=== PATIENT | male | born 1945 | race Caucasian/White ===

== ENCOUNTER 2019-06-02 10:17 | Emergency (ER) | payer MEDICARE, OTHER ==
[~2019-06-02] VITALS: Ht 172.7 cm; Wt 83.9 kg
[2019-06-02 10:40] VITALS: BP 213/95
--- NOTE | 2019-06-02 10:40 | NUR ---
ED Nurse Note: pt presents to ED c/o right sided HERNADEZ x1 day. pt states that it feels like a "pressure" that he would rate 2/10. pt describes feeling a "tension" when he bears down (sneezing, coughing). He has not taken any of his meds today because he took an OTC medication for HERNADEZ and did not want it to interact with his regular medications. pt also reports having 2 loose stools today and is feeling more lethargic than normal. per pt, his blood pressure at home has been in the range of 140/80.
[2019-06-02] MEDS ORDERED: LIPITOR10 MG ORAL (10:45)
[2019-06-02] MEDS ORDERED: LOSARTAN POTASS25 M1 PO (10:46)
[2019-06-02] MEDS ORDERED: ATENOLOL50 MG ORAL (10:49)
[2019-06-02] MEDS ORDERED: OMEPRAZOLE20 M2 ORAL (10:50)
[2019-06-02] MEDS ORDERED: HYDROCHLOROTH12.5 MG ORAL (10:50)
--- NOTE | 2019-06-02 10:55 | Emergency Room Report ---
History of Present Illness General Chief Complaint: Headache Source: Patient Present Illness HPI Patient presents with complaints of episode of right-sided headache who reports that last night he had a slight discomfort To the right temporal parietal region of the scalp patient noticed some discomfort when coughing He had taken a pain medicine last night reports that his symptoms had significantly improved This morning he had 2 episodes of diarrhea He reports that this happens whenever he eats [place] food Denies any chest pain or shortness of breath denies any vomiting denies any recent travel denies any visual changes denies any discomfort at this time upon arrival Patient appears to have recently increased His losartan and has stopped hydrochlorothiazide for the past 2 months Patient also reports that at the dental clinic at [facility] they have checked his blood pressure with a manual cuff and it is consistently different than the automated cuff Allergies: Coded Allergies: No Known Allergies (Unverified , 06/02/19) Patient History Past Medical History: see triage record Reviewed Nursing Documentation: PMH: Agreed; PSxH: Agreed Nursing Documentation-PMH Hx Cardiac Problems: No - hyperlipidemia Hx Hypertension: Yes Hx Diabetes: Yes - Pre-Diabetes Hx Gastrointestinal Problems: Yes - cholesystemomy 2011 Review of Systems All Other Systems: negative except mentioned in HPI Physical Exam Vital Signs Date Time Temp Pulse Resp B/P (MAP) Pulse Ox O2 Delivery O2 Flow Rate FiO2 06/02/19 10:25 98.2 74 18 213/95 (134) 92 Room Air Sp02 EP Interpretation: reviewed, normal General Appearance: well appearing, no apparent distress Head: normocephalic, atraumatic Eyes: bilateral eye PERRL, bilateral eye EOMI ENT: hearing grossly normal, normal pharynx, TMs + canals normal, uvula midline Neck: full range of motion, supple, no meningismus, no bony tend Respiratory: lungs clear, normal breath sounds, no rhonchi, no respiratory distress, no retraction, no accessory muscle use Cardiovascular #1: normal peripheral pulses, regular rate, rhythm, no edema, no gallop, no JVD, no murmur Gastrointestinal: normal bowel sounds, non tender, soft, no mass, no organomegaly, non-distended, no guarding, no hernia, no pulsatile mass, no rebound Genitourinary: no CVA tenderness Musculoskeletal: normal inspection Neurologic: oriented x3, responsive, draw frame runner III-XII nml as tested, motor strength/ tone normal, sensory intact Psychiatric: mood/affect normal Skin: no rash Lymphatic: normal inspection, no adenopathy Medical Decision Making Diagnostic Impression: Primary Impression: Headache Additional Impression: Hypertension ER Course Multiple differentials including but not limited to neurological, neurosurgical infectious pathology are all entertained, Other differential such as temporal arteritis Patient also reports receiving the flu shot about 3 weeks ago Patient's white blood cell count shows very minimal increase Kidney function also is mildly increased patient reports that he is aware that and was 1 of the reasons why his physician change his medications patient's blood pressure has improved to 165 systolic during his stay CT imaging shows chronic findings These are discussed with the patient especially given the significant small vessel disease Patient's blood work also discussed I discussed with the patient regarding inpatient care versus outpatient care, given the patient's hypertensive findings nonspecific CT findings patient could benefit from inpatient neurology , MRI Patient however at this time asymptomatic reports that his pain is 0 out of 10 Has repeat benign neurological exam and reports that he will contact his physician on Tuesday otherwise presents back with any concerning findings Labs Test 06/02/19 11:19 06/02/19 11:33 White Blood Count 11.6 K/UL (4.8-10.8) Red Blood Count 5.02 M/UL (4.70-6.10) Hemoglobin 16.4 G/DL (14.2-18.0) Hematocrit 48.1 % (42.0-52.0) Mean Corpuscular Volume 96 FL (80-99) Mean Corpuscular Hemoglobin 32.6 PG (27.0-31.0) Mean Corpuscular Hemoglobin Concent 34.1 G/DL (32.0-36.0) Red Cell Distribution Width 11.5 % (11.6-14.8) Platelet Count 229 K/UL (150-450) Mean Platelet Volume 8.7 FL (6.5-10.1) Neutrophils (%) (Auto) % (45.0-75.0) Lymphocytes (%) (Auto) % (20.0-45.0) Monocytes (%) (Auto) % (1.0-10.0) Eosinophils (%) (Auto) % (0.0-3.0) Basophils (%) (Auto) % (0.0-2.0) Differential Total Cells Counted 100 Neutrophils % (Manual) 88 % (45-75) Lymphocytes % (Manual) 10 % (20-45) Monocytes % (Manual) 0 % (1-10) Eosinophils % (Manual) 0 % (0-3) Basophils % (Manual) 0 % (0-2) Band Neutrophils 2 % (0-8) Platelet Estimate Adequate Platelet Morphology Normal Red Blood Cell Morphology Normal Sodium Level 137 MMOL/L (136-145) Potassium Level 4.1 MMOL/L (3.5-5.1) Chloride Level 100 MMOL/L (98-107) Carbon Dioxide Level 25 MMOL/L (21-32) Anion Gap 12 mmol/L (5-15) Blood Urea Nitrogen 19 mg/dL (7-18) Creatinine 1.4 MG/DL (0.55-1.30) Estimat Glomerular Filtration Rate mL/min (>60) Glucose Level 141 MG/DL (74-106) Calcium Level 9.6 MG/DL (8.5-10.1) Total Bilirubin 0.9 MG/DL (0.2-1.0) Aspartate Amino Transf (AST/SGOT) 27 U/L (15-37) Alanine Aminotransferase (ALT/SGPT) 28 U/L (12-78) Alkaline Phosphatase 66 U/L (46-116) Total Creatine Kinase 164 U/L (26-308) Creatine Kinase MB 2.0 NG/ML (0.0-3.6) Creatine Kinase MB Relative Index 1.2 Troponin I 0.000 ng/mL (0.000-0.056) Total Protein 8.3 G/DL (6.4-8.2) Albumin 4.4 G/DL (3.4-5.0) Globulin 3.9 g/dL Albumin/Globulin Ratio 1.1 (1.0-2.7) Rhythm Strip Diag. Results EP Interpretation: yes Rate: 77 Rhythm: NSR, no PVC's, no ectopy CT/MRI/US Diagnostic Results CT/MRI/US Diagnostic Results : Impression CT headIMPRESSION: 1. No acute intracranial abnormality. 2. Mild chronic small vessel ischemic changes and cerebral volume loss. Last Vital Signs Date Time Temp Pulse Resp B/P (MAP) Pulse Ox O2 Delivery O2 Flow Rate FiO2 06/02/19 10:25 98.2 74 18 213/95 (134) 92 Room Air Status: improved Disposition: HOME, SELF-CARE Condition: Improved Referrals: NON PHYSICIAN (PCP) Additional Instructions: Patient is provided with the discharge instructions notified to follow up with primary doctor in the next 2-3 days otherwise return to the er with any worsening symptoms. Please note that this report is being documented using [employer] technology. This can lead to erroneous entry secondary to incorrect interpretation by the dictating instrument. Sallie Angeles DO Jun 02, 2019 10:54
--- NOTE | 2019-06-02 11:30 | NUR ---
ED Nurse Note: pt brought down to CT
[2019-06-02 11:43] LABS: HEMATOCRIT 48.1 % (42.0-52.0); HEMOGLOBIN 16.4 G/DL (14.2-18.0); MEAN CORPUSCULAR VOLUME 96 FL (80-99); PLATELET COUNT 229 K/UL (150-450); RED BLOOD COUNT 5.02 M/UL (4.70-6.10); RED CELL DISTRIBUTION WIDTH 11.5 % (11.6-14.8); WHITE BLOOD COUNT 11.6 K/UL (4.8-10.8)
[2019-06-02 11:53] LABS: ANION GAP 12 mmol/L (5-15); BLOOD UREA NITROGEN 19 mg/dL (7-18); CALCIUM 9.6 MG/DL (8.5-10.1); CARBON DIOXIDE 25 MMOL/L (21-32); CHLORIDE 100 MMOL/L (98-107); CREATININE 1.4 MG/DL (0.55-1.30); POTASSIUM 4.1 MMOL/L (3.5-5.1); SODIUM 137 MMOL/L (136-145)
[2019-06-02 12:09] LABS: ALANINE AMINOTRANSFERASE 28 U/L (12-78); ALBUMIN 4.4 G/DL (3.4-5.0); ALBUMIN/GLOBULIN RATIO 1.1 (1.0-2.7); ALKALINE PHOSPHATASE 66 U/L (46-116); ASPARTATE AMINO TRANSFERASE 27 U/L (15-37); BILIRUBIN,TOTAL 0.9 MG/DL (0.2-1.0); CREATINE KINASE 164 U/L (26-308)
--- NOTE | 2019-06-02 12:20 | Diagnostic Imaging Report ---
EXAM: CT Head Without Intravenous Contrast CLINICAL HISTORY: PAIN TECHNIQUE: Axial computed tomography images of the head brain without intravenous contrast. CTDI is 55.7 mGy and DLP is 1257.4 mGy-cm. One or more of the following dose reduction techniques were used: automated exposure control, adjustment of the mA and or kV according to patient size, use of iterative reconstruction technique. COMPARISON: None FINDINGS: Brain: No acute infarct or hemorrhage identified. No extra-axial fluid collection. No mass effect or midline shift. Scattered areas of hypoattenuation in the supratentorial white matter likely represent chronic small vessel ischemic changes. Ventricles and sulci: Prominence of the ventricles and sulci is likely secondary to cerebral volume loss. Skull: Normal. No bony lesion or fracture. Subcutaneous tissues: Normal. Sinuses: Mild mucosal thickening in the right maxillary sinus and anterior ethmoid air cells. Orbits: Grossly unremarkable. Other: Atherosclerotic calcifications in the intracranial vasculature. IMPRESSION: 1. No acute intracranial abnormality. 2. Mild chronic small vessel ischemic changes and cerebral volume loss.
[2019-06-02 12:53] VITALS: BP 180/73
--- NOTE | 2019-06-02 12:53 | NUR ---
ER DISCHARGE NOTE: Patient is cleared to be discharged per ERMD, pt is aox4, on room air, with stable vital signs. pt was given dc instructions, pt was able to verbalize understanding, pt id band and iv site removed without complications. pt is able to ambulate with steady gait. pt took all belongings and understands to f/u with PCP about further imaging as recommended by ER physician.
--- NOTE | 2019-06-05 14:24 | Cardiology Report ---
APPROVED REPORT EKG Measurement Heart [id number] CT [id number] Normal sinus rhythm Normal ECG
== END 2019-06-02 12:53 | disposition home or self-care (01) ==
LOC: EMR 10:35
DX: R51 Headache (principal); I10 Essential (primary) hypertension; E78.5 Hyperlipidemia, unspecified; R73.03 Prediabetes; Z90.49 Acquired absence of other specified parts of digestive tract
CPT/HCPCS: 36415; 70450; 80053; 82550; 82553; 84484; 85007; 85025; 93005; 99284